=== PATIENT | male | born 1960 | race Caucasian/White ===

== ENCOUNTER → 2017-01-07 | Outpatient (CLI) | payer OTHER ==
[~2017-01-07] MED LIST: ATARAX PO; HYDROCODONE-APA1 T51 PO; IBUPROFEN800 MG PO; LORTAB 5/500 TA1 TA1 PO; NAPROSYN500 MG PO; NORCO 5/325 TAB1 TAB PO; PERCOCET 51 UDTAB 5/ PO; XANAX1 MG PO
[2017-01-07 13:27] LABS: BASOPHIL% 0.6 % (0-2.5); EOSINOPHIL# 0.1 X10e3 (0-0.7); EOSINOPHIL% 0.9 % (0.0-7.0); HEMATOCRIT 39.2 % (38.0-50.0); HEMOGLOBIN 13.3 gm/dL (13.0-16.0); LYMPHOCYTE# 2.7 X10e3 (1.0-3.5); LYMPHOCYTE% 37.8 % (17.0-45.0); MEAN CELL VOLUME 89.2 FL (83-96); MEAN CORPUSCULAR HEMOGLOBIN 30.2 PG (28-34); MEAN CORPUSCULAR HGB CONC 33.9 g/dL (30-36); MONOCYTE# 0.4 X10e3 (0-1.0); MONOCYTE% 5.6 % (3.0-12.0); NEUTROPHIL% 55.1 % (40-75); PLATELET COUNT 204 X10e3 (140-420); RED BLOOD COUNT 4.39 X10e (3.90-5.60); RED CELL DISTRIBUTION WIDTH 13.1 % (11.0-15.5); WHITE BLOOD COUNT 7.2 X10e3 (4.0-10.5)
[2017-01-07 13:28] LABS: DIFF IND NO
[2017-01-07 14:53] LABS: ALBUMIN SERUM 4.7 g/dL (3.5-5.0); ALKALINE PHOSPHATASE 52 U/L (32-92); ALT (SGPT) 15 U/L (10-40); AST (SGOT) 29 U/L (10-42); BILIRUBIN,TOTAL 0.7 mg/dL (0.2-2.0); BLOOD UREA NITROGEN 13 mg/dL (9-23); BUN/CREATININE RATIO 14.44; CALCIUM SERUM 9.3 mg/dL (8.4-10.2); CARBON DIOXIDE 28 mmol/L (22-31); CHLORIDE 104 mmol/L (100-111); CREATININE SERUM 0.9 mg/dL (0.6-1.4); GLOM FILT RATE Estimated ABOVE60 mL/min (>60); GLUCOSE FASTING 100 mg/dL (70-110); POTASSIUM 4.2 mmol/L (3.5-5.1); PROTEIN TOTAL SERUM 7.7 g/dL (6.0-8.3); SODIUM 142 mmol/L (135-145)
== END | disposition home or self-care (01) ==
LOC: CLAB 12:48
PROVIDERS: Psychiatry & Neurology Neurology
DX: F11.20 Opioid dependence, uncomplicated (principal)
CPT/HCPCS: 36415; 80053; 85025

== ENCOUNTER 2017-03-13 17:44 | Emergency (ER) | payer OTHER ==
--- NOTE | ~2017-03-13 | EKG ---
PATIENT: LINA STEWART UNIT #: [id number] Ventricular Rate: 95 BPM Atrial Rate: 95 BPM P-R Interval: 134 ms QRS Duration: 90 ms Q-T Interval: 338 ms QTC Calculation(Bezet): 424 ms P [place]: 80 degrees Calculated R [place]: 62 degrees Calculated T [place]: 62 degrees Diagnosis Line: Normal sinus rhythm Diagnosis Line: Right atrial enlargement Diagnosis Line: Borderline ECG Diagnosis Line: When compared with ECG of 12-JUL-2015 10:37, Diagnosis Line: Vent. rate has increased BY 46 BPM Diagnosis Line: Confirmed by LILO LEBLANC MD ([id number]) on 03/14/2017 Diagnosis Line: 6:02:45 PM INTERPRETING MD: DEANA VILLELA
--- NOTE | ~2017-03-13 | CT16 ---
[facility] A Service of [facility] RADIOLOGY TEXT RESULTS PATIENT: LINA STEWART LOCATION: [facility] : 64 UNIT #: [id number] AGE: [address]: Raulito Iglesias DO SEX: M ORDER DR: [id number] [facility] [address] [place], [place] [address] [id number] E MR#: [id number] #: [id number] NAME: LINA STEWART. : 1960 SEX: M STUDY DATE/TIME: 03/13/2017 22:47 UNIT: [facility] ROOM: STUDY DESCRIPTION: CT Angio Chest for PE Attending Physician: Raulito Iglesias D.O. Ordering Physician: Raulito Iglesias D.O. Primary Care Physician: No Primary Care Physician MEDICAL IMAGING REPORT This report is preliminary unless electronic signature is present EXAM CTA chest. INDICATION Elevated D-dimer. Chest pain and shortness of air for [address] angiography of the chest utilizing 80 mL Isovue-370 IV contrast. Coronal, 3-D MIP reconstructions and standard sagittal reconstructions were obtained. This CT exam was performed with one or more of the following radiation dose reduction techniques: automatic exposure control, adjustment of mA and/or kV according to patient size, and iterative reconstruction. COMPARISON CTA chest dated 01/25/2011. FINDINGS No pulmonary embolus. No thoracic aortic aneurysm or dissection. There is a patchy bilateral airspace opacities in the left lower lobe and in the right lower lobe consistent with a multifocal pneumonia. There is a borderline enlarged mediastinal and hilar lymph nodes. These are likely reactive. A right infrahilar lymph node measures 0.9 cm. A precarinal lymph node measures 1.1 cm. No pericardial or pleural effusion. Limited images of the upper abdomen were obtained. There is no acute findings. No acute osseous abnormalities. [facility] A Service of [facility] RADIOLOGY TEXT RESULTS PATIENT: LIAN STEWART LOCATION: [facility] : 64 UNIT #: [id number] AGE: [address]: Raulito Iglesias DO SEX: M ORDER DR: IMPRESSION 1. Negative for pulmonary embolus. 2. Right lower lobe and left lower lobe pneumonia. 3. Borderline enlarged mediastinal and hilar lymph nodes are likely reactive due to the above pneumonia. Dictated by... Arsenio Fine M.D. THIS IS AN ELECTRONICALLY VERIFIED REPORT Arsenio Fine M.D. at 03/14/2017 12:20 AM CLAUDIA/glo TD: 03/13/2017 23:27 JOB #: [id number] MEDICAL IMAGING REPORT Page 1 of 1 COPY
--- NOTE | ~2017-03-13 | CR72 ---
[facility] A Service of [facility] RADIOLOGY TEXT RESULTS PATIENT: LINA STEWART LOCATION: [facility] : 64 UNIT #: [id number] AGE: [address]: Raulito Iglesias DO SEX: M ORDER DR: [id number] [facility] [address] [place], [place] [address] [id number] E MR#: [id number] Acc #: [id number] NAME: LINA STEWART. : 1960 SEX: M STUDY DATE/TIME: 03/13/2017 19:44 UNIT: [facility] ROOM: STUDY DESCRIPTION: CR Chest Single View Portable Attending Physician: Raulito Iglesias D.O. Ordering Physician: Raulito Iglesias D.O. Primary Care Physician: No Primary Care Physician MEDICAL IMAGING REPORT This report is preliminary unless electronic signature is present EXAM Portable chest. HISTORY Chest pain and shortness of air today. FINDINGS Minimal patchy subsegmental infiltrate in the left base is nonspecific but is new compared to 02/28/11. Mild emphysema with hyperinflation of both lungs. Cardiac and mediastinal contours are normal. Moderate hypertrophic spurring mid and lower thoracic spine. Old left upper rib fractures. IMPRESSION 1. Minimal patchy subsegmental infiltrate in the left base. Although, nonspecific this could be secondary to pneumonia versus atelectasis. Consider short-term followup chest x-ray. 2. Hyperinflation of both lungs. 3. No infiltrates in the remainder of the lungs. Dictated by... Duarte Mahmood M.D. THIS IS AN ELECTRONICALLY VERIFIED REPORT Duarte Mahmood M.D. at 03/13/2017 11:21 PM LEANDRA/glo TD: 03/13/2017 21:57 JOB #: [id number] MEDICAL IMAGING REPORT [facility] A Service of [facility] RADIOLOGY TEXT RESULTS PATIENT: LINA STEWART LOCATION: [facility] : 64 UNIT #: [id number] AGE: [address]: Raulito Iglesias DO SEX: M ORDER DR: Page 1 of 1 COPY
[2017-03-13 18:07] LABS: BASOPHIL# 0.1 X10e3 (0-0.3); BASOPHIL% 1.1 % (0-2.5); EOSINOPHIL# 0.1 X10e3 (0-0.7); EOSINOPHIL% 0.6 % (0.0-7.0); HEMATOCRIT 41.2 % (38.0-50.0); HEMOGLOBIN 13.7 gm/dL (13.0-16.0); LYMPHOCYTE# 1.6 X10e3 (1.0-3.5); LYMPHOCYTE% 11.7 % (17.0-45.0); MEAN CELL VOLUME 87.9 FL (83-96); MEAN CORPUSCULAR HEMOGLOBIN 29.2 PG (28-34); MEAN CORPUSCULAR HGB CONC 33.2 g/dL (30-36); MEAN PLATELET VOLUME 7.4 FL (6.5-11.5); MONOCYTE# 0.8 X10e3 (0-1.0); MONOCYTE% 5.7 % (3.0-12.0); NEUTROPHIL# 11.2 X10e3 (1.5-7.1); NEUTROPHIL% 80.9 % (40-75); PLATELET COUNT 410 X10e3 (140-420); RED BLOOD COUNT 4.68 X10e (3.90-5.60); RED CELL DISTRIBUTION WIDTH 12.3 % (11.0-15.5); WHITE BLOOD COUNT 13.9 X10e3 (4.0-10.5)
[2017-03-13 18:12] LABS: DIFF IND NO
[2017-03-13 18:31] LABS: ALBUMIN SERUM 3.8 g/dL (3.5-5.0); BILIRUBIN, DIRECT 0.1 mg/dL (0.0-0.2); BILIRUBIN,INDIRECT 0.4 mg/dL (0.0-0.9); BILIRUBIN,TOTAL 0.5 mg/dL (0.2-2.0); BUN/CREATININE RATIO 15.55; CALCIUM SERUM 9.1 mg/dL (8.4-10.2); CREATININE SERUM 0.9 mg/dL (0.6-1.4); GLOM FILT RATE Estimated 96.5 mL/min (>60); POTASSIUM 4.6 mmol/L (3.5-5.1); PROTEIN TOTAL SERUM 8.8 g/dL (6.0-8.3)
[2017-03-13 19:31] LABS: POC - CKMB 1.3 ng/mL (0.0-7.9); POC - TROPONIN <0.05 ng/mL (<=0.05)
[2017-03-13 19:56] LABS: INR 1.1; PARTIAL THROMBOPLASTIN TIME 29.5 SECONDS (23.5-31.3); PROTHROMBIN TIME (PATIENT) 11.5 SECONDS (9.6-11.5)
[2017-03-13 22:28] LABS: POC - CKMB 1.3 ng/mL (0.0-7.9); POC - TROPONIN <0.05 ng/mL (<=0.05)
== END 2017-03-14 04:03 | disposition home or self-care (01) ==
LOC: CED 17:44
PROVIDERS: Emergency Medicine
DX: J18.9 Pneumonia, unspecified organism (principal); F32.9 Major depressive disorder, single episode, unspecified; F17.200 Nicotine dependence, unspecified, uncomplicated; Z86.19 Personal history of other infectious and parasitic diseases; Z90.89 Acquired absence of other organs
CPT/HCPCS: 36415; 71010; 71275; 80048; 80076; 82553; 83605; 84484; 85025; 85379; 85610; 85730; 93005; 96365; 99284; J0456; J0696; Q9967

== ENCOUNTER → 2017-04-12 | Outpatient (CLI) | payer OTHER ==
[2017-04-12 09:22] LABS: HEMATOCRIT 39.2 % (38.0-50.0); HEMOGLOBIN 13.1 gm/dL (13.0-16.0)
== END | disposition home or self-care (01) ==
LOC: CLAB 08:41 → CSSDAY 08:41
PROVIDERS: Nurse Practitioner Family
DX: E83.111 Hemochromatosis due to repeated red blood cell transfusions (principal)
CPT/HCPCS: 36415; 85014; 85018; 99195; G0463